=== PATIENT | female | born 1995 | race African-American/Black ===

== ENCOUNTER 2018-02-03 12:01 | Day surgery (SDC) | payer OTHER ==
[2018-02-03 12:34] VITALS: BP 119/72; TEMP 98.5
[2018-02-03 12:35] VITALS: BMI 26.6
--- NOTE | 2018-02-03 15:41 | ULT ---
OB ULTRASOUND: HISTORY: Size and dates. Followup to possible previa. Vaginal bleeding x2 days. COMPARISON: 11/26/2017 FINDINGS: Real-time imaging of the pelvis shows a single viable intrauterine in a breech presentation . The placenta is posterior in location. There is no evidence of previa. There is a definite separ ate from the cervical os on this exam. Cervical canal length is 3.4 cm. The placenta has a somewhat unusual appearance, as the placental edges appear slightly lifted with some curling of the edges of the placenta centrally; however, I see no evidence of any central band. This has some features of a circumvallate placenta. The amniotic fluid is adequate for this stage of . heart rate is 150 beats per minute. measurements are as follows: BPD: 5.8 cm (23 weeks 6 days) HEAD CIRCUMFERENCE: 22.3 cm (24 weeks 2 days) ABDOMINAL CIRCUMFERENCE; 19.6 cm (24 weeks 2 days) FEMUR LENGTH: 4.5 cm (24 weeks 5 days) Review of anatomy shows a normal appearing spine, a three-vessel cord, a four-chamber heart, an d normal kidneys. The posterior fossa appears unremarkable. No anomalies are detected. The amnioti c fluid index is calculated at 13.3. IMPRESSION: 1. Single viable intrauterine in a breech presentation. Overall measurements correspondin g to a gestational age of 24 weeks 1 day. Estimated date of delivery 05/25/2018. 2. The placenta is posterior in location. On this examination, no previa is demonstrated; however, there is an unusual enfolding of the margins of the placenta. There is no central connecting band bu t the appearance of these enfolding margins raises the possibility of a circumvallate placenta. I wo uld recommend consideration for followup with an MRI to confirm this finding. POS: [facility]
[2018-02-03 17:18] LABS: Bilirubin Negative (Negative); Blood, Urine Negative (Negative); Clarity CLEAR (Clear); Glucose, Urine (Dipstick) Negative (Negative); Leukocyte Trace (Negative); Nitrite Negative (Negative); Protein, Urine (Dipstick) Negative (Neg-Trace); Specific Gravity, Urine 1.013 (1.002-1.036); pH, Urine 7.5 (5.0-9.0)
[2018-02-03 17:20] LABS: Bacteria/HPF None Seen HPF (None Seen); Hyaline Casts/LPF 0-3 HYALINE CAST LPF (0-3 Hyaline); Pathc Cast-AUWi Flag 0.29 (0-2.49); RBC/HPF 0-3 HPF (0-3); Squamous Epithelial 0-3 HPF (0-3)
[2018-02-03 17:31] LABS: Transitional Epithelial 0-3 HPF (0-3)
--- NOTE | 2018-02-03 22:09 | PRG ---
DATE OF SERVICE: 02/03/2018 PRIMARY AIR POLLUTION COMPLIANCE INSPECTOR: Dr. Kory Sampson. CHIEF COMPLAINT: Vaginal bleeding. HISTORY OF PRESENT ILLNESS: The patient is a 23-year-old, G5, P1 female with an intrauterine pregnan cy at 24 weeks and 3 days and a history of delivery at 32 weeks, who was sent to the Labor an d Delivery from the clinic after being evaluated there for vaginal bleeding. The patient reports estela t Dr. Sampson had to use several Q-tips to remove the blood that was in the vaginal vault. At the time of our evaluation, the patient had already received a ultrasound demonstrating an appropriate sized fetus at 24 weeks gestation with a cervical length of 3.4 cm and a normal MICHAEL. Of note, ultras ound also did report some abnormal findings and this ultrasound imaging suggesting a circumvallate pl acenta and had recommended an MRI of the placenta for definitive diagnosis. I shared these results w ith Ms. Foley. At the time of our evaluation, the patient reports that her bleeding had although st opped and that she was feeling some pains in her lower pelvis and back area that she describes more a s sharp, although she does not report that they get worse with activity. The patient denies intercou rse in last couple days. She did have a history of placenta previa earlier in the ; however , this ultrasound does demonstrate a posterior placenta, about 2.8 cm from the internal os. The tyler ent denies headache, chest pain, shortness of breath, nausea, vomiting, any new rashes, significant d iarrhea, constipation. She denies any other discharge. She denies urinary urgency or frequency. PAST MEDICAL HISTORY: Negative. PAST SURGICAL HISTORY: She has had 1 prior . OB HISTORY: She had a delivery at 32 weeks. SOCIAL HISTORY: Denies drug, alcohol or tobacco use. ALLERGIES: No known drug allergies. MEDICATIONS: vitamins. REVIEW OF SYSTEMS: Per HPI. PHYSICAL EXAMINATION: VITAL SIGNS: Blood pressure 115/70, heart rate of 76, satting 99% on room air, temperature 98.5, res piratory rate 18. GENERAL: She appears to be in no acute distress. She is alert and oriented, cooperative and pleasan t to interact with. HEAD: Normocephalic, atraumatic. CHEST: Clear to auscultation bilaterally. HEART: Regular rate and rhythm. ABDOMEN: Soft and nontender. She does have a little bit of tenderness with deviation of the uterus and a little bit of suprapubic tenderness. No CVA tenderness and no vertebral tenderness. EXTREMITIES: Nontender and nonedematous. PELVIC: Vulva is without masses, lesions or erythema. She has no blood visible on her perineum. On speculum exam, she has a significant amount of greenish white discharge. There is no obvious bleedi ng though after the swabs for PLATFORM POWER TECHNICIAN-3 and GC chlamydia. The cervix appeared somewhat friable. On digit al exam, cervix is closed and thick, but soft. heart tracing performed. Fetus noted to have a baseline in the 140s with moderate long-term va riability, appropriate for 24-week gestation. Tocometer shows irritability. No regular contraction pattern. LABORATORY STUDIES: Urinalysis is negative for protein, ketones, nitrites. She has trace leukocyte esterase, 4-6 white blood cells, no squamous cells, and no bacteria. PLATFORM POWER TECHNICIAN-3 is positive for bacterial vaginosis for Gardnerella, is negative for Trichomonas and Marilee. GC and chlamydia are pending. ASSESSMENT AND PLAN: The patient is a 23-year-old female, who presented with vaginal bleeding that s eems to be self-limited and some pelvic pain. She has a normal cervical length at 3.4 cm. Normal ap pearing fetus for gestational age, size hamilton. There are some concerns on the ultrasound that the isaías villareal may have a circumvallate placenta and MRI as recommended. I will be sharing results with the anshul riley with the diagnosis of bacterial vaginosis and will be giving her a prescription for metronidazo le 500 mg to be taken twice a day for 7 days. She also has an order for an MRI to be done outpatient tomorrow morning at 9:30. The patient has been here for a total of 6 hours and subjectively feeling better. patient go home as her cervix is closed and her bleeding has stopped. She has an MRI for the morning and will be given a prescription for metronidazole and has instructions to follow up with her primary OB in the next few days.
[2018-02-07 20:51] LABS: Chlamydia by PCR Not Detected (NotDetected); GC by PCR Not Detected (NotDetected)
--- NOTE | 2018-02-07 22:07 | PDOC.EVN ---
Event Note - Event Note Event Note: Post-discharge Note: on 02/07/18 at 2200: I was requested to follow up on GC/Chl PCR from 02/03...GC and Chl were both negative.
== END 2018-02-03 19:15 | disposition home or self-care (01) ==
LOC: L&D/OP 12:01
PROVIDERS: ATTEND Internal Medicine
DX: O46.92 Antepartum hemorrhage, unspecified, second trimester (principal); O99.89 Other specified diseases and conditions complicating pregnancy, childbirth and the puerperium; R10.2 Pelvic and perineal pain; O23.592 Infection of other part of genital tract in pregnancy, second trimester; B96.89 Other specified bacterial agents as the cause of diseases classified elsewhere; Z79.899 Other long term (current) drug therapy; Z3A.24 24 weeks gestation of pregnancy
CPT/HCPCS: 51701; 76805; 81001; 87480; 87491; 87510; 87591; 87660; 99285; A4353

== ENCOUNTER 2018-02-24 16:14 | Outpatient (CLI) | payer OTHER ==
--- NOTE | 2018-02-25 09:19 | MRI ---
MRI OF THE PELVIS WITHOUT IV CONTRAST: COMPARISON: Obstetrical ultrasound dated 02/02/2018. TECHNIQUE: Multiplanar, multisequence MR images were obtained of the pelvis without IV contrast. FINDINGS: The placenta is posterior in location without evidence of previa. There is uplifting of the superior aspect of the membranes off the placental margin, best seen on images 27 through 16 of series 12. The placental ledge is best seen along the superior aspect of the placenta on image 23 of series 2 and on image 36 of series 3. The circumvallate placenta involves approximately 15-20% of the supe rior and left lateral margin of the placenta. There are no overt changes to suggest abruption. There is a 3-vessel cord. The fetus is in a vertex presentation. Appropriate situs is demonstrated. The visualized kidneys, bladder, stomach, heart, lungs, and spine appear within normal limits . Qualitatively, the MICHAEL appears within normal limits. The cervical length is 3.2 cm. There are no overt changes of funneling. No free fluid is evident. There is a 2 cm cyst involving the superior pole of the maternal left kidn ey. The visualized aspects of the maternal right kidney are normal-appearing without evidence of hyd ronephrosis. The maternal bone marrow signal intensity appears within normal limits. IMPRESSION: 1. Findings of circumvallate placenta along the superior and maternal left lateral margin of the paulette cental attachment occupying approximately 15 to 20% of the placenta margin by estimate. No additiona l abnormality demonstrated. 2. Left maternal renal cyst. POS: [facility]
== END 2018-02-24 16:15 | disposition home or self-care (01) ==
LOC: MRI 16:14
PROVIDERS: ATTEND Obstetrics & Gynecology
DX: O09.212 Supervision of pregnancy with history of pre-term labor, second trimester (principal); O34.82 Maternal care for other abnormalities of pelvic organs, second trimester; N28.1 Cyst of kidney, acquired
CPT/HCPCS: 72195

== ENCOUNTER 2018-03-14 20:48 | Day surgery (SDC) | payer OTHER ==
[2018-03-14 21:37] LABS: #Eosinphils 0.2 thou/uL (0.0-0.7); #Lymphocytes 1.6 thou/uL (1.20-3.40); #Monocytes 0.8 thou/uL (0.11-0.59); %Basophils 0.3 % (0.0-1.0); %Eosinophils 2.6 % (0.0-10.0); %Lymphocytes 18.4 % (21.0-51.0); %Monocytes 9.4 % (0.0-10.0); %Neutrophils 69.3 % (42.0-75.0); Hemoglobin 9.2 g/dL (12.0-16.0); Mean Corpuscular HGB CONC 32.6 g/dL (32.0-36.0); Mean Corpuscular Hemoglobin 25.4 pg (27.0-31.0); Mean Corpuscular Volume 77.9 fL (78.0-98.0); Mean Platelet Volume 7.3 fL (7.4-10.4); Platelet Count 131 thou/uL (130-400); RBC Distribution Width 13.6 % (11.5-14.5); Red Blood Cell (RBC) Count 3.64 mill/uL (4.20-5.40); White Blood Cell (WBC) Count 8.7 thou/uL (4.8-10.8)
[2018-03-14 21:59] LABS: ALT (SGPT) 7 U/L (8-55); AST (SGOT) 17 U/L (5-34); Albumin 3.4 g/dL (3.5-5.0); Alkaline Phosphatase 114 U/L (40-150); Anion Gap 11 mmol/L (10-20); BUN (Urea Nitrogen) 5 mg/dL (7.0-18.7); Bilirubin, Total 0.5 mg/dL (0.2-1.2); Calc. Creatinine Clearance 0 mL/min (70-130); Calcium 9.1 mg/dL (7.8-10.44); Carbon Dioxide 24 mmol/L (22-29); Chloride 105 mmol/L (98-107); Estimated GFR-MDRD Greater than 90; Globulin 3.6 g/dL (2.4-3.5); Glucose 86 mg/dL (70-105); Magnesium 1.5 mg/dL (1.6-2.6); Potassium 3.6 mmol/L (3.5-5.1); Sodium 136 mmol/L (136-145)
[2018-03-14 22:02] LABS: Troponin I Less than 0.010 ng/mL (< 0.028)
[2018-03-14 22:20] VITALS: BP 115/69; TEMP 98.1; BMI 27.8
--- NOTE | 2018-03-14 22:46 | PRG ---
DATE OF SERVICE: 03/14/2018 TIME OF SERVICE: 2215 hours. OB ED NOTE PRESENTING COMPLAINT: A 23-year-old, 30 weeks' gestation with a syncopal episode at home and fall. HISTORY OF PRESENT ILLNESS: Ms. Foley is a 23-year-old 5, para 1, AB 3 at 30 weeks by state [facility]. Antepartum record is not available on the unit. The patient reports that she was at home in the kitchen and she felt hot and dizzy, and the next thing she knew she woke up and she was in the am bulance. By reports of her is that he found her lying on the floor on her side in the kitche n. No known abdominal trauma occurred. The patient denies vaginal bleeding, rupture of membranes, c urrent abdominal pain, or contractions. OBSTETRIC AND GYNECOLOGIC HISTORY: The patient's antepartum record is not available on the unit. It appears that the patient has had some antepartum care during this , but only recently [employer]. She reports that she just recently got on 17-hydroxyprogesterone for history of previo us births in the past few weeks. The patient has had 3 spontaneous miscarriages. She report s she had a 32-week spontaneous rupture of membranes and proceeded on to active labor for which she h ad section for unknown reason. The patient is unaware of her blood type and I cannot find i t in any of her previous visits at [facility] in the computer. Review of recent MRI at [facility] revealed that the patient had a marginally circumvallate placenta and 1 cyst noted on her kidney. The patient's basic metabolic panel tonight reveals a normal creatin ine of 0.66. The patient is mildly anemic with a hematocrit of 28.4. PAST MEDICAL HISTORY: Significant for polycystic kidney disease. PAST SURGICAL HISTORY: . ALLERGIES: Denies. MEDICATIONS: vitamins and 17-hydroxyprogesterone. SOCIAL HISTORY: Denies tobacco, alcohol, IV drug use. FAMILY HISTORY: Noncontributory. PHYSICAL EXAMINATION: GENERAL: Black female resting comfortably, status post C-collar clearance in the emergency room. VITAL SIGNS: Temperature 98.7, respirations 18, blood pressure 108/72, pulse 85. HEENT: Within normal limits. LUNGS: Clear to auscultation bilaterally. HEART: Regular rhythm. ABDOMEN: Soft and nontender without palpable contractions. Fundal height 30 cm. FHTs 130s to 150s, positive accelerations, no decelerations noted on external monitoring. No CVA tenderness is noted. EXTREMITIES: Without clubbing, cyanosis, or edema. PELVIC: Vaginal exam is deferred. MONITORING: monitoring has been placed at this time. Monitoring for greater than 20 min utes in the ER revealed no contractions and no decelerations. IMPRESSION: The patient is status post syncopal episode, likely secondary to physiologic hypotension in early third trimester. No evidence of abdominal trauma. PLAN: Continuous monitoring for 3 to 4 more hours. If no significant contractions or evidence of distress, we will discharge her home for scheduled followup with Dr. Sampson.
[2018-03-14] MEDS ORDERED: Acetaminophen 325 MG TAB PO PRN (22:52)
== END 2018-03-15 01:00 | disposition home or self-care (01) ==
LOC: ERS 20:48 → L&D/OP 21:58
PROVIDERS: ATTEND Family Medicine
DX: O99.89 Other specified diseases and conditions complicating pregnancy, childbirth and the puerperium (principal); R55 Syncope and collapse; Q61.3 Polycystic kidney, unspecified; O99.013 Anemia complicating pregnancy, third trimester; D64.9 Anemia, unspecified; Z3A.30 30 weeks gestation of pregnancy; Z79.899 Other long term (current) drug therapy; W19.XXXA Unspecified fall, initial encounter
CPT/HCPCS: 36415; 80053; 83735; 84484; 85025; 99283

== ENCOUNTER 2018-03-21 11:40 | Day surgery (SDC) | payer OTHER ==
[2018-03-21 12:05] VITALS: BP 116/67; TEMP 97.8; BMI 27.3
--- NOTE | 2018-03-21 12:32 | PDOC.FPROB ---
FMR OB H&P: HPI - History of Present Illness Chief Complaint: cramping History of Present Illness: 23 yo F comes in with chief complaint of cramping that started last night about 2044. She states at home it would come and go every 2-3 minutes, she went to sleep and it spaced out. She describes the pain as dull. She has some pain in the back related to the cramping that comes and goes. She states she noted some blood in the urine this AM and had some dysuria. She denies vaginal bleeding, states she has a small amount of white vaginal discharge. Denies vaginal itching or burning. She has had Nausea for the last 3 days, she had four episodes of diarrhea yesterday but not vomiting. No fevers, chills, or sweats. No blood in the stool. Feels baby moving, possible contractions as above, dysuira as above, no BALDEV, no vaginal bleeding. Denies Headache, SOB, visual changes, or swelling. Primary Care Physician: Adrián FMR OB H&P: Current - Care : 5 Para: 1030 Gestational age: 31 - Additional Ultrasound Additional: US on 03/14 showed posterior placenta, "placental folding", cervical canal length 3.4 cm, no evidence of previa Follow-up MRI showed circumvallate placenta FMR OB H&P: History - Past Medical History PMH: Polycystic kidney disease - OB History OB History: 3 sab 1 infant delivered at 32 weeks after SROM. She does not know indication for c/s. - Surgical History Sx History: c/s x1 - Social History Social History: denies smoking, alcohol, or drugs - Family History Family History: father with congenital heard defect, "hole in heart", did not require intervention cousins with down's, autism, CP FMR OB H&P: Medications - Current Home Medications: Medication Instructions Recorded Confirmed Type Ferrous Sulfate 324 mg PO DAILY 02/03/18 03/21/18 History Vit Calc,Iron,Folic 1 each PO DAILY 02/03/18 03/21/18 History [ Vitamins] Allergies/Adverse Reactions: Allergies Allergy/AdvReac Type Severity Reaction Status Date / Time No Known Allergies Allergy Verified 03/21/18 12:05 FMR OB H&P: ROS - Review of Systems General: denies: fever/chills, fatigue ENT: denies: nasal congestion, sore throat Cardiovascular: denies: chest pain, palpitation Respiratory: denies: cough, shortness of breath Gastrointestinal: reports: nausea, diarrhea. denies: vomiting Genitourinary (Female): reports: dysuria, hematuria Musculoskeletal: denies: pain, stiffness Neurologic: denies: numbness, syncope Integumentary: denies: itching, rash Hematologic/Lymphatic: denies: prolonged or excessive bleeding FMR OB H&P: Vital Signs - Maternal Vital signs: Vital Signs - First Documented Temp Resp BP 97.8 F 18 116/67 03/21/18 11:59 03/21/18 11:59 03/21/18 11:59 - Heart Tones Baseline: 140 Variability: moderate Acceleration: present Deceleration: absent Category: category 1 [place] contractions every: irregular FMR OB H&P: Physical Exam - Physical Exam General: NAD, awake, alert and oriented HEENT: normocephalic and atraumatic, PERRLA Neck: supple Heart: RRR, normal S1/S2, no murmurs/rubs/gallops, pulses present General: CTAB, no respiratory distress, good air movement Abdomen: soft, gravid, non-tender, bowel sound present Deviation from normal: no CVA tenderness Musculoskeletal: pulses present Neurological: cranial nerves II through XII intact, no focal deficit Skin: no rash, capillary refill <2 seconds FMR OB H&P: A/P - Problem List (1) Cramping affecting , antepartum Status: Acute Code(s): O26.899 - OTH RELATED CONDITIONS, UNSPECIFIED TRIMESTER; R10.9 - UNSPECIFIED ABDOMINAL PAIN Discussion: Date/Time: 03/21/18 1232 This H&P was discussed with Dr. Chanel # Pre-term , cramping - hx of loss x3, on progesterone - denies vaginal bleeding or drake of fluids - Posterior placenta, no previa, circumvallate placenta per MRI - irregular contractions, will monitor - will do SVE if she has a regular cxn pattern # Dysuria, UTI vs Pyelo - hx of PCKD - no CVA tenderness or fever - check UA, CBC, CMP Attending Addendum - Attending Addendum Date/Time: 03/21/18 1430 I personally evaluated the patient and discussed the management with Dr. Burris. I agree with the History, Examination, Assessment and Plan documented above.
[2018-03-21] MEDS ORDERED: Acetaminophen 325 MG TAB PO SCH (12:45)
[2018-03-21] MEDS ORDERED: Lactated Ringer's 1,000 ML IV SCH (12:45)
[2018-03-21 13:20] LABS: #Eosinphils 0.2 thou/uL (0.0-0.7); #Monocytes 0.7 thou/uL (0.11-0.59); #Neutrophils 5.4 thou/uL (1.40-6.50); %Basophils 0.1 % (0.0-1.0); %Eosinophils 2.5 % (0.0-10.0); %Lymphocytes 13.6 % (21.0-51.0); %Neutrophils 74.8 % (42.0-75.0); Hemoglobin 8.8 g/dL (12.0-16.0); Mean Platelet Volume 7.5 fL (7.4-10.4); Platelet Count 118 thou/uL (130-400); Red Blood Cell (RBC) Count 3.52 mill/uL (4.20-5.40); White Blood Cell (WBC) Count 7.2 thou/uL (4.8-10.8)
[2018-03-21 13:21] LABS: Bilirubin Negative (Negative); Blood, Urine Trace (Negative); Clarity CLEAR (Clear); Glucose, Urine (Dipstick) Negative (Negative); Leukocyte Trace (Negative); Nitrite Negative (Negative); Protein, Urine (Dipstick) Negative (Neg-Trace); Specific Gravity, Urine 1.005 (1.002-1.036)
[2018-03-21 13:24] LABS: Bacteria/HPF None Seen HPF (None Seen); Hyaline Casts/LPF 0-3 HYALINE CAST LPF (0-3 Hyaline); Pathc Cast-AUWi Flag 0.29 (0-2.49); WBC/HPF 0-3 HPF (0-3)
[2018-03-21 13:30] LABS: ALT (SGPT) Less than 7 U/L (8-55); AST (SGOT) 16 U/L (5-34); Albumin 3.3 g/dL (3.5-5.0); Alkaline Phosphatase 116 U/L (40-150); Anion Gap 12 mmol/L (10-20); BUN (Urea Nitrogen) Less than 4 mg/dL (7.0-18.7); Bilirubin, Total 0.6 mg/dL (0.2-1.2); Calc. Creatinine Clearance 136 mL/min (70-130); Calcium 8.7 mg/dL (7.8-10.44); Carbon Dioxide 23 mmol/L (22-29); Chloride 104 mmol/L (98-107); Estimated GFR-MDRD Greater than 90; Globulin 3.5 g/dL (2.4-3.5); Glucose 78 mg/dL (70-105); Potassium 3.8 mmol/L (3.5-5.1); Protein, Total 6.8 g/dL (6.0-8.3); Sodium 135 mmol/L (136-145)
--- NOTE | 2018-03-21 13:35 | PDOC.EVN ---
Event Note - Event Note Event Note: CBC/CMP review Hgb 8.8, Plt 118 AST, ALT WNL awaiting U/A results cxns are quite irregular after 1L LR FHT shows moderate variability, accels <Shiv Burris - Last Filed: 03/21/18 13:34> Attending Addendum - Attending Addendum Date/Time: 03/21/18 1431 I discussed the management with Dr. Burris. I agree with the Assessment and Plan documented above. <Bassem Chanel - Last Filed: 03/21/18 14:31>
[2018-03-21 13:39] LABS: Anisocytosis SLIGHT = 6-15 cells (100X) (0-5/hpf); MDiff Complete? YES; PLT Morphology Comment Appears Decreased; Polychromasia SLIGHT = 2-3 cells (100X) (0-2/hpf)
[2018-03-21 13:41] LABS: Renal Epithelial 0-3 HPF (0-3); Transitional Epithelial 0-3 HPF (0-3)
--- NOTE | 2018-03-21 14:00 | PDOC.EVN ---
Event Note - Event Note Event Note: U/A- shows moderate ketones, 7-10 rbs, trace leuk est no WBC, no bact Patient states pain is almost totally resolved after 650mg of tylenol No cxns last 20 minutes on strip, irregular before that Plan -d/c home - encouraged increased fluid intake, 4-6 bottles of water per day - RTC precautions discussed including fever, flank pain, cxns <5 min apart, ROM , or vaginal bleeding - f/u appt with Dr. Sampson in 3 days - patient is in agreement with plans, all questions answered <Shiv Burris - Last Filed: 03/21/18 13:57> Attending Addendum - Attending Addendum Date/Time: 03/21/18 1432 I personally evaluated the patient and discussed the management with Dr. Burris. I agree with the Assessment and Plan documented above. <Bassem Chanel - Last Filed: 03/21/18 14:32>
== END 2018-03-21 14:10 | disposition home or self-care (01) ==
LOC: L&D/OP 11:40
PROVIDERS: ATTEND Family Medicine
DX: O47.03 False labor before 37 completed weeks of gestation, third trimester (principal); R30.0 Dysuria; Z3A.31 31 weeks gestation of pregnancy
CPT/HCPCS: 36415; 51701; 80053; 81001; 85025; 96360; 99282; A4353

== ENCOUNTER 2018-04-09 20:04 | Inpatient (IN) | payer OTHER ==
[2018-04-09 20:53] VITALS: BMI 27.8
[2018-04-09] MEDS ORDERED: Promethazine HCl 25 MG/ML VIAL IM/IV PRN (20:53)
[2018-04-09] MEDS ORDERED: NIFEdipine 10 MG CAP PO SCH ×3 (21:00→22:45)
[2018-04-09] MEDS: Lactated Ringer's 1,000 ML IV SCH (21:20)
[2018-04-09] MEDS: Butorphanol Tartrate 1 MG/ML VIAL SLOW IVP PRN (21:24)
[2018-04-09] MEDS: Betamet Acet/Betamet Na Ph 30 MG/5 ML VIAL IM SCH (21:24)
[2018-04-09 22:05] LABS: ALT (SGPT) 11 U/L (8-55); AST (SGOT) 27 U/L (5-34); Albumin 3.3 g/dL (3.5-5.0); Alkaline Phosphatase 146 U/L (40-150); Anion Gap 14 mmol/L (10-20); BUN (Urea Nitrogen) 5 mg/dL (7.0-18.7); Bilirubin, Total 0.7 mg/dL (0.2-1.2); Calc. Creatinine Clearance 160 mL/min (70-130); Calcium 8.4 mg/dL (7.8-10.44); Carbon Dioxide 17 mmol/L (22-29); Chloride 107 mmol/L (98-107); Estimated GFR-MDRD Greater than 90; Globulin 3.7 g/dL (2.4-3.5); Glucose 80 mg/dL (70-105); Potassium 3.2 mmol/L (3.5-5.1); Sodium 135 mmol/L (136-145)
[2018-04-09 22:07] LABS: #Eosinphils 0.3 thou/uL (0.0-0.7); #Lymphocytes 0.7 thou/uL (1.20-3.40); #Monocytes 0.6 thou/uL (0.11-0.59); #Neutrophils 8.1 thou/uL (1.40-6.50); %Basophils 0.2 % (0.0-1.0); %Eosinophils 2.7 % (0.0-10.0); %Monocytes 6.6 % (0.0-10.0); %Neutrophils 83.6 % (42.0-75.0); MDiff Complete? YES; Mean Corpuscular Hemoglobin 23.7 pg (27.0-31.0); Mean Corpuscular Volume 74.1 fL (78.0-98.0); Mean Platelet Volume 8.8 fL (7.4-10.4); Platelet Count 92 thou/uL (130-400); RBC Distribution Width 15.2 % (11.5-14.5); Red Blood Cell (RBC) Count 3.82 mill/uL (4.20-5.40); White Blood Cell (WBC) Count 9.7 thou/uL (4.8-10.8)
[2018-04-09 22:08] LABS: Anisocytosis SLIGHT = 6-15 cells (100X) (0-5/hpf); PLT Morphology Comment Appears Decreased
--- NOTE | 2018-04-09 22:21 | PDOC.EVN ---
Event Note - Event Note Event Note: L&D meds: s/p 1 dose oral procardia 10mg...contractions still about every 4-6 minutes. I have ordered another 10mg po (first dose was at 2123) now. NICU aware of patient's status.
--- NOTE | 2018-04-09 22:22 | PDOC.EVN ---
Event Note - Event Note Event Note: Labs noted: Cr normal Hct 28
[2018-04-09 22:23] LABS: Syphilis Antibody Nonreactive (Nonreactive); Syphilis Antibody Index 0.05 S/CO (<1.00 Non-Reactive)
--- NOTE | 2018-04-09 22:37 | PDOC.EVN ---
Event Note - Event Note Event Note: Procardia dose increased to 20mg (ordered an additional 10mg to complete this dose...other doses will be 20mg po)
[2018-04-09] MEDS: NIFEdipine 10 MG CAP PO SCH (22:55)
--- NOTE | 2018-04-09 23:10 | PDOC.EVN ---
Event Note - Event Note Event Note: sono ef2 about 2 kilos, vertex, posterior placenta; largest fluid pocket around 3cm
[2018-04-09 23:12] LABS: HBSAg Index 0.18 S/CO (0-0.99); HIV (1/2) Antibody/Antigen Non-Reactive (NonReactive); HIV 1/2 INDEX 0.18 S/CO (<1.00); Hep B Surf Ag Non-Reactive S/CO (NonReactive)
--- NOTE | 2018-04-09 23:40 | ULT ---
OB ULTRASOUND: HISTORY: Thirty-three week patient. Evaluate weight, presentation, and MICHAEL. COMPARISON: 02/03/2018 TECHNIQUE: Sagittal and transverse imaging of a gravid uterus is performed. FINDINGS: Single intrauterine gestation. Vertex presentation. Cervical length is between 3.3 and 3.9 cm. heart tones with a rate of 150 beats per minute. Amniotic fluid index is 10.7 cm. BIOMETRY: BPD: 7.64 cm (30 weeks 5 days) HEAD CIRCUMFERENCE: 28.87 cm (31 weeks 5 days) ABDOMINAL CIRCUMFERENCE: 29.87 cm (33 weeks 6 days) FEMUR LENGTH: 6.20 cm (32 weeks 1 day) Average age by sonography is 32 weeks 1 day. Estimated date of delivery is 06/03/2018. Estimated weight is 2061 g, plus or minus 305 g. A posterior placenta is noted. Evaluation is limited for the presence or absence of previa. A three-vessel cord is noted. Unremarkable kidneys. Unremarkable urinary bladder. The visualized s pine is also unremarkable. IMPRESSION: 1. Single intrauterine gestation with a vertex presentation. Average age by sonography is 32 weeks 1 day. Estimated date of delivery is 06/03/2018. 2. Posterior placenta: Limited evaluation for the presence of absence of previa. 3. Cervical length as above. 4. Amniotic fluid index of 10.7 cm. POS: [facility]
--- NOTE | 2018-04-09 23:43 | HP ---
TIME OF EVALUATION: 20:30 until 20:45. LOCATION: Triage Labor and Delivery, patient in room LDR 3. This is a patient of Dr. Sampson. REASON FOR EVALUATION: Suspected contractions at 33 weeks and 5 days. HISTORY OF PRESENT ILLNESS: In brief, this is a 23-year-old -Wallisian 5, para 1 with 3 prior miscarriages with the last delivery being at 32 weeks when she delivered via section at the [facility] with Dr. Culp for " distress." She is not sure of the type of uterine incision and she was never told that she could or could not have a vaginal delivery. She informs me that Dr. Sampson told her that she was going to have a repeat for this delivery. She is here for possible contractions. No vaginal bleeding, no leakage of fluid, good movement. No recent trauma. No headaches or right upper quadrant pain or visual changes. REVIEW OF SYSTEMS: Complete review of systems was done and is otherwise negative unless specified in the HPI. PAST SURGICAL HISTORY: Significant for polycystic kidney disease and she has her own community health agent at [facility]. ALLERGIES: None. SOCIAL HISTORY: None. PAST SURGICAL HISTORY: in 2012. PHYSICAL EXAMINATION: VITAL SIGNS: Blood pressure is 122/72 and she is afebrile, pulse is 90-100. GENERAL: Clinically, she is in no acute distress, but has some occasional contraction discomfort. ABDOMEN: Soft and nontender with a Pfannenstiel skin incision that is well healed. Cervical examination by me reveals a cervix that is 1/30/-2/cephalic/ intact. No evidence of vaginal bleeding noted. IMAGING DATA: On monitors, heart tones are in the 150s and reactive. Contractions are about every 3-5 minutes. ASSESSMENT: This is a 23-year-old -Wallisian 5, para 1 with 3 prior miscarriages, who is currently at 33 weeks and 5 days by EDC of 05/23/2017 , history of with a of unknown type, now with threatened labor. PLAN: 1. IV hydration. 2. Stadol and Phenergan. 3. Patient is over 32 weeks, so we will not give magnesium sulfate for neuro protection. 4. Celestone for lung maturity. 5. Procardia for tocolysis to aid steroid benefit. 6. Sono for estimated weight. 7. If patient labors with an unknown history, which was performed , we will likely perform a repeat section. 8. I discussed these findings and plan with the patient and her partner. Plan was also written on the white board in the patient's room. We will observe overnight and give her steroids for lung maturity. STEFANY
--- NOTE | 2018-04-10 07:38 | PDOC.LDPN ---
Labor & Delivery Progress Note - Objective Vital signs reviewed and normal: yes General: NAD Uterine fundus: non tender FHT: category 1 - Assessment (1) Threatened labor, antepartum Code(s): O47.00 - FALSE LABOR BEFORE 37 COMPLETED WEEKS OF GEST, UNSP TRI Current Visit: Yes Status: Acute Plan: continue plan of care (Second steroid inhection will be tonight at 2100 or so; on procardia 30mg TID; seems to be arrested PTL at 1cm; prior CS; mild thrombocytopenia)
--- NOTE | 2018-04-10 08:53 | PDOC.EVN ---
Event Note - Event Note Event Note: Received report from Dr. Villavicencio. 23 yo BF with h/o C/S at 32 weeks now with arrested PTL on Procardia. doing well, UCs spacing out, FHTs stable. 2nd dose of steroids at 2100. Plan: Cont. current management.
[2018-04-10] MEDS: NIFEdipine 10 MG CAP PO SCH ×2 (10:00→16:25)
[2018-04-10] MEDS: Lactated Ringer's 1,000 ML IV SCH ×2 (15:08→23:43)
[2018-04-10] MEDS ORDERED: Acetaminophen 325 MG TAB PO PRN (20:21)
[2018-04-10] MEDS: Betamet Acet/Betamet Na Ph 30 MG/5 ML VIAL IM SCH (21:40)
[2018-04-11] MEDS: NIFEdipine 10 MG CAP PO SCH ×2 (00:08→13:44)
[2018-04-11] MEDS: Butorphanol Tartrate 1 MG/ML VIAL SLOW IVP PRN ×2 (02:00→07:40)
--- NOTE | 2018-04-11 02:10 | PDOC.EVN ---
Event Note - Event Note Event Note: C/o lower abdominal discomfort. Abdomen soft. Stadol 1 mg given. Fhts stable. No regular UCs seen. 2nd dose of steroids given at 9 PM. Plan; Cont. Procardia x 24 hrs post last dose of steroids.
[2018-04-11 10:38] VITALS: BP 112/56; TEMP 98.3
--- NOTE | 2018-04-11 14:23 | PDOC.EVN ---
Event Note - Event Note Event Note: DISCHARGE NOTE: ADMIT: 04/09/18 Discharge: 04/11/18 DX: Arrested labor Prior section Third trimester Procedures: Tocolytics Steroid administration Patient s/p 2 day observation for threatened labor. I evaluated the patient first on 04/09/18 when she presented in the evening as a patient of Dr Sampson, prior CS at 33weeks or so at another hospital, presented with possible contractions. Due to labor HX, we elected to watch her for labor. Exam was about 1cm on arrival. Patient underwent steroid administration for 2 injections of Celestone Q24 hrs. She was not given Mag Sulfate for neuroprotection as she was over 32 weeks. procardia given for tocolytics. OB ultrasound revealed a cephalic fetus, size appropriate. Incidental finding of low platelets (>90K) found on admit labs. Patient seen 04/11 at 1420 by me and no evidence of progressive labor, nor LOF. Patient requested discharge to home due to child nutrition assistant issues. Given DC to home clearance 04/11 at approx 1430. Will follow up with Dr Sampson
--- NOTE | 2018-04-11 14:41 | DIS ---
DATE OF ADMISSION: 04/09/2018 DATE OF DISCHARGE: 04/11/2018 In brief, this patient has a discharge note recorded in the EMR/[facility] under documents. This dicta tion is ancillary. DIAGNOSES: 1. Arrested labor at 33 weeks. 2. Prior section. 3. Third trimester . PROCEDURES: 1. Tocolytics. 2. Steroid administration. HOSPITAL COURSE: In brief, this patient presented with me tong setter on 04/09/2018 in the evening and h as a prior at 33 weeks with possible contractions. I evaluated her and found her history t o include a prior at another institution. type is unknown. She sees Dr. Adrián dupont or care. Her cervical exam was 1 cm, no vaginal bleeding or rupture of membranes was eviden t on history or on exam. I kept the patient for steroid administration, Procardia tocolysis and magn esium sulfate was not used as her EGA was over 32 weeks. Ultrasound confirmed a cephalic presentatio n fetus, that was sized appropriate. Patient requested to go home on 04/11/2018 after her two steroi d administrations were completed, due to manager child issues. She will follow up with Dr. Sampson. Once again, this patient has a full discharge note under event note in the [facility] record.
== END 2018-04-11 15:29 | disposition home health service (06) | DRG 832 ==
LOC: L&D/OP 20:04 → OBSVTOIN 20:45 → L&D 20:45
PROVIDERS: ADMIT Obstetrics & Gynecology; ATTEND Obstetrics & Gynecology
PROC: 3E0233Z Introduction of Anti-inflammatory into Muscle, Percutaneous Approach (ICD-10-PCS; principal; 2018-04-09)
DX: O47.03 False labor before 37 completed weeks of gestation, third trimester (principal); Q61.3 Polycystic kidney, unspecified; O99.113 Other diseases of the blood and blood-forming organs and certain disorders involving the immune mechanism complicating pregnancy, third trimester; O62.1 Secondary uterine inertia; Z3A.37 37 weeks gestation of pregnancy; O34.219 Maternal care for unspecified type scar from previous cesarean delivery; N85.8 Other specified noninflammatory disorders of uterus
CPT/HCPCS: 36415; 76805; 80053; 85025; 86780; 87340; 87389; 99285; J0595; J0702; J2550

== ENCOUNTER 2018-04-12 23:18 | Day surgery (SDC) | payer OTHER ==
[2018-04-12 23:42] VITALS: BP 133/74; TEMP 98.4; BMI 28.7
--- NOTE | 2018-04-13 00:46 | PRG ---
DATE OF SERVICE: 04/13/2018 TIME OF SERVICE: 0020 hours PRESENTING COMPLAINTS: Abdominal pain and pressure. HISTORY OF PRESENT ILLNESS: Ms. Folye is a 23-year-old 5, para 1, AB 3, well known to this unit for multiple presentations during this . She presents to the [facility] a nd she was transferred to labor and delivery complaining of pressure, mild right upper quadrant pain from baby kicking her, and occasional contractions. She denies rupture of membranes. She denies ble eding. She reports active fetus. Of note, the patient was in the hospital approximately 4 days ago and received corticosteroids for possible early labor. OB AND [employer] HELPER HISTORY: As noted in the HPI, she has had a previous by Dr. Mason Culp at the [facility]. She is planning on having a repeat . Antepartum record is not available on the unit. PAST SURGICAL HISTORY: C-sections. MEDICAL HISTORY: Polycystic kidney disease for which the patient sees a petrology teacher for. MEDICATIONS: vitamins. ALLERGIES: None. SOCIAL HISTORY: Denies tobacco, alcohol, or IV drug abuse. FAMILY HISTORY: Noncontributory. REVIEW OF SYSTEMS: Noncontributory. PHYSICAL EXAMINATION: GENERAL: Black female in no acute distress. VITAL SIGNS: Blood pressure 130/72, pulse 85, respirations 18, temperature 98.6. HEENT: Within normal limits. LUNGS: Clear to auscultation bilaterally. HEART: Regular rate and rhythm. ABDOMEN: Soft and nontender, without palpable contractions. FHTs 140s. PELVIC: Vulva without lesions. Vagina, discharge. Cervix fingertip long, and high, presenting part not palpable. EXTREMITIES: Without clubbing, cyanosis or edema. monitoring reveals no evidence of contractions, baseline of 130s, positive accelerations, no de celerations. IMPRESSION: Discomforts of at 34 weeks. No evidence of labor. PLAN: Discharge home, keep scheduled followup with Dr. Sampson. The patient has her last weekly proge sterone injections this week and will keep that appointment as well too.
== END 2018-04-13 00:30 | disposition home or self-care (01) ==
LOC: L&D/OP 23:18
PROVIDERS: ATTEND Obstetrics & Gynecology
DX: O26.893 Other specified pregnancy related conditions, third trimester (principal); R10.11 Right upper quadrant pain; Z3A.36 36 weeks gestation of pregnancy
CPT/HCPCS: 96360; 99283

== ENCOUNTER 2018-04-26 09:34 | Day surgery (SDC) | payer OTHER ==
[2018-04-26 10:13] VITALS: BMI 27.8
[2018-04-26] MEDS ORDERED: Morphine 10 MG/ML VIAL ONE (12:44)
[2018-04-26] MEDS ORDERED: Morphine 10 MG/ML VIAL IM SCH (12:45)
[2018-04-26] MEDS ORDERED: Ondansetron ODT 8 MG TAB SL SCH (12:45)
--- NOTE | 2018-04-26 23:53 | PRG ---
DATE OF SERVICE: 04/26/2018 OB ER ENCOUNTER PRIMARY DIRECTOR OF TAX SERVICES: Dr. Kory Sampson. CHIEF COMPLAINT: Abdominal pains. HISTORY OF PRESENT ILLNESS: The patient is a 23-year-old G5, P1 female with an intrauterine at 36 weeks and a day, who presents to Labor and Delivery ER with concerns of abdominal cramping that she says feels like menstrual cramps and came to be evaluated for labor. The patient also reports that she has been having a lot more leaking this last few days that she reports is more liquidy. She denies any change in her odor. She denies fever. She denies vaginal bleeding. She does report a history of contractions throughout her these last few months and that at 32 weeks, received steroids. The patient also has a history of a 32-week delivery and has been on IM progesterone for supplementation. PAST MEDICAL HISTORY: 1. Probably kidney disease. 2. Anemia. PAST SURGICAL HISTORY: Previous with a low-transverse section per the op report for nonreassuring heart tones and premature rupture of membranes at 32 weeks. SOCIAL HISTORY: Denies drug, alcohol, or tobacco use. She also reports a history of chlamydia in the past. LABORATORY DATA: Blood type is O positive. Antibody screen is negative. RPR is nonreactive in the first and third trimester. HIV nonreactive in the first and third trimester. Hepatitis B surface antigen is negative. She is rubella immune. GC and chlamydia were negative at the beginning of this . The patient does have a history BV previously in this . REVIEW OF SYSTEMS: The patient denies fever, fall, headache, chest pain, shortness of breath, nausea, vomiting, diarrhea, constipation, new rash, hip problems, knee problems, muscle weakness, or urinary urgency. PHYSICAL EXAMINATION: VITAL SIGNS: Blood pressure 128/81, heart rate of 86, respiratory rate of 20, saturating 99% on room air, temperature 97.6. GENERAL: She appears to be in no acute distress. She is alert and oriented, cooperative, and pleasant to interact with. HEAD: Normocephalic and atraumatic. LUNGS: Clear to auscultation bilaterally. HEART: Regular rate and rhythm. ABDOMEN: Soft and gravid. She does have some minimal tenderness with deviation of the uterus, but is not consistent with the pains that she has come in complaining of. EXTREMITIES: Nontender and nonedematous. PELVIC: Vulva is without masses, lesions, or erythema. Speculum exam shows copious amount of off colored discharge, sufficient enough that I was unable to visualize the cervix without using several Peguero swabs to remove the discharge. Cervix appears to be closed and non-friable. On Valsalva, the patient does not have any evidence of leakage of fluid. Cervical exam per nursing staff, cervix is 1.5, 50, and -4 station, unchanged after 3 hours. heart tracing performed for abdominal pain and . Baseline is noted to be in the 130s with moderate long-term variability, positive 15 x 15 accelerations, no decelerations. I have noted the very end of the strip just prior to removing the monitor. The patient sat up and the heart tracing dropped from heart tones to maternal heart tones into the 80s. VPIII was collected and found to be positive for bacterial vaginosis. No evidence of Trichomonas or yeast. ASSESSMENT AND PLAN: The patient is a 23-year-old G5, P1 female with an intrauterine at 36 weeks and a day with a confirmed lower transverse section with a previous delivery. The patient does report a desire to attempt a vaginal after . We have reviewed thoroughly the risks and benefits of a repeat versus trial of labor. The patient has expressed understanding and desires to attempt a vaginal . At this time, the patient has been provided with a written consent form for her also to review once again to strengthen her informed consent and has been given instructions to have this discussion with her primary OB, Dr. Sampson, if she does not deliver before his return as he is out of town for the next week. The patient has bacterial vaginosis, which would explain the discharge that she is having. We also have GC chlamydia collected and sent for evaluation, which should be back in the next 2 to 3 days. The patient does report a history of chlamydia in the past. As the patient has a lower transverse uterine scar, desires attempt to labor prior to Dr. Sampson returning and has agreed to have this discussion with her primary OB to get his advice and school counselor when he returns. The patient's fetus has a reactive NST and reassuring category 1 tracing. The patient will be discharged to home with metronidazole 500 mg taken twice a day for the next week and will follow up with her primary OB as scheduled. Job ID: [id number]
[2018-04-27 19:00] LABS: Chlamydia by PCR Not Detected (NotDetected); GC by PCR Not Detected (NotDetected)
--- NOTE | 2018-04-28 19:57 | PDOC.EVN ---
Event Note - Event Note Event Note: Lab check post discharge: GC and Chl are negative
== END 2018-04-26 15:33 | disposition home health service (06) ==
LOC: L&D/OP 09:34
PROVIDERS: ATTEND Family Medicine
DX: O99.89 Other specified diseases and conditions complicating pregnancy, childbirth and the puerperium (principal); R10.9 Unspecified abdominal pain; O23.593 Infection of other part of genital tract in pregnancy, third trimester; B96.89 Other specified bacterial agents as the cause of diseases classified elsewhere; O99.013 Anemia complicating pregnancy, third trimester; D64.9 Anemia, unspecified; Z3A.36 36 weeks gestation of pregnancy; Z79.899 Other long term (current) drug therapy
CPT/HCPCS: 87480; 87491; 87510; 87591; 87660; 96372; 99285; J2270

== ENCOUNTER 2018-04-29 16:44 | Day surgery (SDC) | payer OTHER ==
[2018-04-29 17:06] VITALS: BMI 27.8
[2018-04-29] MEDS ORDERED: Lactated Ringer's 1,000 ML IV SCH ×2 (17:30)
[2018-04-29] MEDS ORDERED: Butorphanol Tartrate 1 MG/ML VIAL SLOW IVP PRN (17:31)
--- NOTE | 2018-04-29 17:34 | PDOC.LDHP ---
Labor and Delivery H&P Chief complaint: contractions HPI: 23 yo BF c/o UCs since walking 4 miles today. Seen at [address] today and was told she was 2 cm. Denies bleeding, SROM. Here earlier this week with similar complaints. Current gestational age (weeks): 36 Due date: 05/23/17 Dating criteria: first trimester ultrasound Grav: 5 Para: 1 OB History Details: PNC with Dr. Sampson. Current complications: none Abnormal US findings: No Past Medical History: polycystic kidney disease Current medications: pre-mode vitamins Previous surgical history: other (C/S at 32 weeks) Allergies/Adverse Reactions: Allergies Allergy/AdvReac Type Severity Reaction Status Date / Time No Known Allergies Allergy Verified 04/26/18 09:51 Social history: none - Physical Exam Vital signs reviewed and normal: yes General: resting Heart: RRR Lungs: CTAB Abdomen: gravid Extremeties: trace edema FHT: category 1 [place] contractions every: UCs q 4-5 mins - Vaginal Exam cm dilated: 2 Effacement: 25% Station: -2 - OB Labs Blood type: O RH: positive Antibody Screen: negative HIV: negative RPR: negative HEPSAg: negative 1 hour GCT: unknown GBS: unknown - Assessment L&D Assessment: labor (r/o labor) - Plan Plan: observation in L&D (IV fluid, Stadol Observe for cervical change)
--- NOTE | 2018-04-29 20:17 | PDOC.EVN ---
Event Note - Event Note Event Note: Given regular diet by Dr. Patrick. He has documented her scar as LST. SVE per labor RN shows no change. FHTs stable. Irregular mild UCs seen. Plan: DC home with precautions.
== END 2018-04-29 23:36 | disposition home or self-care (01) ==
LOC: L&D/OP 16:44
PROVIDERS: ATTEND Family Medicine
DX: O47.03 False labor before 37 completed weeks of gestation, third trimester (principal); O99.89 Other specified diseases and conditions complicating pregnancy, childbirth and the puerperium; Q61.3 Polycystic kidney, unspecified; Z3A.36 36 weeks gestation of pregnancy; Z79.899 Other long term (current) drug therapy
CPT/HCPCS: 96360; 96361; 99283

== ENCOUNTER 2018-05-04 11:10 | Inpatient (IN) | payer OTHER ==
[2018-05-04] MEDS ORDERED: Ondansetron PF 4 MG/2 ML Vial IVP PRN ×2 (12:17→17:02)
[2018-05-04] MEDS ORDERED: Bicitra 30 ML UDCUP PO SCH (12:30)
[2018-05-04] MEDS ORDERED: CEFAZOLIN 2 GM/50 ML BAG IVPB SCH (12:30)
[2018-05-04 12:39] VITALS: BMI 28.3
[2018-05-04] MEDS: Lactated Ringer's 1,000 ML IV SCH ×2 (12:39→13:02)
[2018-05-04 13:06] LABS: Mean Corpuscular HGB CONC 31.6 g/dL (32.0-36.0); Mean Corpuscular Hemoglobin 22.6 pg (27.0-31.0); Mean Corpuscular Volume 71.4 fL (78.0-98.0); Mean Platelet Volume 9.5 fL (7.4-10.4); Platelet Count 134 thou/uL (130-400); RBC Distribution Width 16.6 % (11.5-14.5); Red Blood Cell (RBC) Count 3.98 mill/uL (4.20-5.40); White Blood Cell (WBC) Count 7.6 thou/uL (4.8-10.8)
[2018-05-04 13:45] LABS: Syphilis Antibody Nonreactive (Nonreactive); Syphilis Antibody Index 0.05 S/CO (<1.00 Non-Reactive)
[2018-05-04] MEDS ORDERED: Morphine PF 1 MG/ML SYR ONE (13:46)
[2018-05-04] MEDS ORDERED: Succinylcholine Chloride 20 MG/ML 10 ml SYRINGE FS ONE (13:46)
[2018-05-04] MEDS ORDERED: HYDROmorphone 2 MG/ML VIAL SLOW IVP PRN (14:25)
[2018-05-04] MEDS ORDERED: Ondansetron HCl/PF 4 MG/2 ML Vial IVP PRN (14:25)
[2018-05-04] MEDS ORDERED: Meperidine HCl/PF 25 MG/ML VIAL SLOW IVP PRN (14:25)
[2018-05-04] MEDS ORDERED: Ketorolac Tromethamine 30 MG/ML VIAL IVP SCH (14:30)
[2018-05-04] MEDS ORDERED: ePHEDrine/0.9% NaCl/PF SYRINGE 50 mg/10 ml ONE (14:31)
[2018-05-04] MEDS ORDERED: Oxytocin 10 UNITS/ML VIAL ONE (14:31)
[2018-05-04] MEDS ORDERED: Ondansetron PF 4 MG/2 ML Vial ONE (14:35)
[2018-05-04] MEDS ORDERED: PHENYLEPHRINE-NS 100 MCG/ML 10 ML SYRINGE ONE (14:56)
[2018-05-04 15:01] LABS: HBSAg Index 0.21 S/CO (0-0.99); Hep B Surf Ag Non-Reactive S/CO (NonReactive)
[2018-05-04] MEDS ORDERED: Ketorolac Tromethamine 30 MG/ML VIAL ONE (16:39)
[2018-05-04] MEDS ORDERED: Milk Of Magnesia 30 ML UDCUP PO PRN (17:02)
[2018-05-04] MEDS ORDERED: NS / Oxytocin 40 units/1000ml 1,000 ML IV SCH (17:02)
[2018-05-04] MEDS ORDERED: diphenhydrAMINE 25 MG CAP PO PRN (17:02)
[2018-05-04] MEDS ORDERED: Promethazine HCl 25 MG/ML VIAL IM PRN (17:02)
[2018-05-04] MEDS ORDERED: Lanolin Ointment 7 GM TUBE TOP PRN (17:02)
[2018-05-04] MEDS ORDERED: Bisacodyl 10 MG SUPP PR PRN (17:02)
[2018-05-04] MEDS ORDERED: HYDROcodone/Acetaminophen 5/325 mg Tablet PO PRN ×2 (17:02)
[2018-05-04] MEDS: Ibuprofen 800 MG TAB PO SCH (18:41)
[2018-05-04] MEDS: Ferrous Sulfate 325 MG TAB PO SCH (18:41)
[2018-05-04] MEDS: Docusate Calcium (SURFAK) 240 MG CAP PO SCH (21:44)
[2018-05-05] MEDS ORDERED: Ketorolac Tromethamine 30 MG/ML VIAL IVP PRN (02:29)
[2018-05-05] MEDS ORDERED: Ondansetron PF 4 MG/2 ML Vial IVP PRN (02:29)
[2018-05-05] MEDS ORDERED: Naloxone HCl 0.4 mg/ml Vial IV PRN ×2 (02:29)
[2018-05-05] MEDS ORDERED: Promethazine HCl 25 MG SUPP PR PRN (02:29)
[2018-05-05] MEDS ORDERED: Hydrocerin (Eucerin) Cream 120 gm Jar TOP PRN (02:29)
[2018-05-05] MEDS ORDERED: Promethazine HCl 25 MG/ML VIAL IM PRN (02:29)
[2018-05-05] MEDS ORDERED: NO PO,IM,IV OR SC NARCOTICS FOR 12HR EXCEPT BY ANESTHESIA PO SCH (02:29)
[2018-05-05] MEDS ORDERED: diphenhydrAMINE 50 MG/ML VIAL IVP PRN (02:29)
[2018-05-05] MEDS: Ibuprofen 800 MG TAB PO SCH ×3 (03:11→23:24)
[2018-05-05 07:55] LABS: Hemoglobin 7.3 g/dL (12.0-16.0); Mean Corpuscular HGB CONC 31.8 g/dL (32.0-36.0); Mean Corpuscular Hemoglobin 23.1 pg (27.0-31.0); Mean Corpuscular Volume 72.4 fL (78.0-98.0); Mean Platelet Volume 9.3 fL (7.4-10.4); Platelet Count 110 thou/uL (130-400); RBC Distribution Width 16.7 % (11.5-14.5); Red Blood Cell (RBC) Count 3.16 mill/uL (4.20-5.40); White Blood Cell (WBC) Count 7.5 thou/uL (4.8-10.8)
[2018-05-05] MEDS: Docusate Calcium (SURFAK) 240 MG CAP PO SCH ×2 (08:38→21:42)
[2018-05-05] MEDS: Prenatal Vitamin 1 TAB PO SCH (08:38)
[2018-05-05] MEDS: Ferrous Sulfate 325 MG TAB PO SCH ×2 (08:38→18:38)
[2018-05-05] MEDS: Naloxone HCl 0.4 mg/ml Vial IV PRN ×2 (08:38→09:07)
[2018-05-05] MEDS ORDERED: HYDROcodone/Acetaminophen 5/325 mg Tablet PO PRN (12:58)
[2018-05-05] MEDS: HYDROcodone/Acetaminophen 5/325 mg Tablet PO PRN ×2 (13:05→17:56)
[2018-05-05] MEDS: Simethicone Chewable 80 MG TAB PO PRN (18:38)
--- NOTE | 2018-05-06 01:06 | PDOC.OPDEL ---
OB Operative/Delivery Note Delivery Dr/Surgeon: Adrián Assist: Matt Pre-Delivery Diagnosis: active labor, ruptured membrane, other (Prior C/S x1) Procedure/Post Delivery Dx: repeat low transverse CS Weeks gestation: 37 (37.2 wks) Anesthesia: spinal - Findings A Sex: male Weight: 3.281 kg - 1 min: 8 - 5 min: 9 - Additional Findings/Plan Placenta delivered: manual removal findings: low transverse hysterotomy without extension, normal uterus, normal tubes, normal ovaries Estimated blood loss: 800 mL Compilations/Other Findings: Date of Procedure: 05/04/2018 Resident Surgeon: Matt Attending Surgeon: Adrián Procedure: Repeat low transverse caesarean section Preoperative Diagnosis: 1)Term intrauterine 2)Previous 3)SROM in active labor Postoperative Diagnosis: 1)Same as above 2)rLTCS Anesthesia: Spinal Indications: The patient is a 23 year old female at 37.2 weeks gestation who presented with rupture of membranes and contractions. Patient with previous c/s x1 desiring repeat c/s. Procedure in Detail: After risks, benefits, and alternatives were explained to the patient, she gave informed consent. Pre-operative antibiotics included Cefazolin 2 gram IV. The patient was taken to the operating room and spinal anesthesia was initiated. She was placed in the supine position with a left tilt and prepped and draped in usual sterile fashion. A Pfannenstiel incision was made with a scalpel and carried down to the level of the fascia which was sharply nicked. The fascial cut was extended bilaterally with Marcus sissors. The inferior and superior edges of the cut fascial edges were elevated with Stew clamps. Adhesions were noted on anterior fundus of uterus and rectus muscles. A window was created using cauterization. Bladder blade was placed. Bladder flap was created with Metzenbaum scissors. A low transverse score was made with the scalpel and the uterus was entered in the midline with the scalpel. Clear fluid was seen. The hysterotomy was extended manually. The was noted to be vertex and was easily delivered by fundal pressure. Mouth and nares were bulb suctioned. Cord clamped and cut and grossly normal male infant was handed to waiting nurse. Cord blood was obtained. Placenta was manually extracted, found to be intact with 3 vessel cord and discarded. The uterus was externalized and the endometrium was curetted with a dry lap. The bladder blade was replaced and the uterus was closed with a running locking 0-Vicryl followed by several figure of eight stitches using 0-Vicryl. Following this hemostasis was noted. The abdomen was irrigated with saline and suctioned free of clots. The uterus was internalized and the hysterotomy was again noted to be hemostatic. The fascia was closed with a running non-locking 0-PDS. The subcutaneous tissue was irrigated and there were no bleeders. The subcutaneous tissue was brought together using 3-0 Vicryl. The skin was approximated with noris and a pressure dressing was placed. All counts were correct. The patient tolerated the procedure well and was taken to the recovery room in stable condition. Estimated Blood Loss: 800 mL Complications: None Specimens: Cord blood sent to lab for blood type Findings: Grossly normal male infant with apgars of 8 and 9. Grossly normal placenta with 3 vessel cord discarded. Drains: Ellison to gravity draining clear urine Post delivery plan: routine recovery
[2018-05-06] MEDS: Ibuprofen 800 MG TAB PO SCH ×3 (05:15→21:34)
[2018-05-06] MEDS ORDERED: Ibuprofen 800 MG TAB PO SCH (06:00)
[2018-05-06] MEDS: Ferrous Sulfate 325 MG TAB PO SCH ×2 (09:36→17:55)
[2018-05-06] MEDS: Prenatal Vitamin 1 TAB PO SCH (09:36)
[2018-05-06] MEDS: Simethicone Chewable 80 MG TAB PO PRN ×2 (09:36→21:33)
[2018-05-06] MEDS: Docusate Calcium (SURFAK) 240 MG CAP PO SCH ×2 (09:37→21:33)
[2018-05-06] MEDS: HYDROcodone/Acetaminophen 5/325 mg Tablet PO PRN ×2 (09:37→17:59)
[2018-05-07] MEDS: Ibuprofen 800 MG TAB PO SCH ×2 (05:22→13:44)
[2018-05-07] MEDS: HYDROcodone/Acetaminophen 5/325 mg Tablet PO PRN ×2 (05:22→12:23)
[2018-05-07] MEDS: Docusate Calcium (SURFAK) 240 MG CAP PO SCH (08:15)
[2018-05-07] MEDS: Prenatal Vitamin 1 TAB PO SCH (08:15)
[2018-05-07 08:16] VITALS: BP 115/65; TEMP 98.1
[2018-05-07] MEDS: Ferrous Sulfate 325 MG TAB PO SCH (08:16)
[2018-05-07] MEDS: Simethicone Chewable 80 MG TAB PO PRN (12:23)
== END 2018-05-07 16:04 | disposition home or self-care (01) | DRG 788 ==
LOC: L&D-LIB 11:10 → L&D 13:56 → 3SW 17:46
PROVIDERS: ADMIT Family Medicine; ATTEND Family Medicine
PROC: 10D00Z1 Extraction of Products of Conception, Low, Open Approach (ICD-10-PCS; principal; 2018-05-04)
DX: O34.211 Maternal care for low transverse scar from previous cesarean delivery (principal); Z3A.37 37 weeks gestation of pregnancy; Z37.0 Single live birth
CPT/HCPCS: 36415; 51702; 85027; 86780; 86850; 86900; 86901; 87340; J1885; J2274; J2310; J2405; J2590

== ENCOUNTER 2019-12-20 15:30 | Emergency (ER) | payer OTHER ==
[2019-12-20 16:12] LABS: #Lymphocytes 1.7 thou/uL (1.20-3.40); #Monocytes 0.3 thou/uL (0.11-0.59); #Neutrophils 1.8 thou/uL (1.40-6.50); %Eosinophils 0.9 % (0.0-10.0); %Lymphocytes 43.8 % (21.0-51.0); %Monocytes 7.8 % (0.0-10.0); %Neutrophils 47.4 % (42.0-75.0); Hemoglobin 9.5 g/dL (12.0-16.0); Mean Corpuscular Hemoglobin 23.3 pg (27.0-31.0); Mean Corpuscular Volume 75.2 fL (78.0-98.0); Mean Platelet Volume 8.6 fL (7.4-10.4); Platelet Count 218 thou/uL (130-400); RBC Distribution Width 14.7 % (11.5-14.5); Red Blood Cell (RBC) Count 4.07 mill/uL (4.20-5.40); White Blood Cell (WBC) Count 3.9 thou/uL (4.8-10.8)
[2019-12-20 16:33] LABS: ALT (SGPT) Less than 7 U/L (8-55); AST (SGOT) 15 U/L (5-34); Alkaline Phosphatase 89 U/L (40-110); Anion Gap 9 mmol/L (10-20); BUN (Urea Nitrogen) 6 mg/dL (7.0-18.7); Bilirubin, Total 0.3 mg/dL (0.2-1.2); Calc. Creatinine Clearance 0 mL/min (70-130); Calcium 8.7 mg/dL (7.8-10.44); Carbon Dioxide 24 mmol/L (22-29); Chloride 106 mmol/L (98-107); Estimated GFR-MDRD 83; Globulin 3.3 g/dL (2.4-3.5); Glucose 92 mg/dL (70-105); Potassium 3.5 mmol/L (3.5-5.1); Protein, Total 7.3 g/dL (6.0-8.3); Sodium 135 mmol/L (136-145)
[2019-12-20 17:44] LABS: Bilirubin Negative (Negative); Blood, Urine 3+ (Negative); Clarity Clear (Clear); Glucose, Urine (Dipstick) Normal (Negative); Ketone, Urine Negative (Negative); Leukocyte Negative Leu/uL (Negative); Nitrite Negative (Negative); Protein, Urine (Dipstick) Negative (Neg-Trace); RBC/HPF 21-50 HPF (0-3); Squamous Epithelial 0-3 HPF (0-3); Urobilinogen Normal mg/dL (Less than 2); WBC/HPF 0-3 HPF (0-3)
[2019-12-20 17:50] LABS: Bacteria/HPF 1+ HPF (None Seen)
[2019-12-20] MEDS ORDERED: Morphine 4 MG/ML VIAL ONE ×2 (17:50→18:27)
[2019-12-20] MEDS ORDERED: Ketorolac Tromethamine 30 MG/ML VIAL ONE ×2 (17:50→18:26)
--- NOTE | 2019-12-20 17:51 | MRI ---
MRI LUMBAR SPINE WITHOUT CONTRAST: 12/20/19 INDICATIONS: Caudal equina is given as reason for exam. Patient complains of right leg numbness x1 day. FINDINGS: Lumbar vertebrae maintain normal height and alignment. The disc spaces are normally maintained and ex hibit normal hydration. No evidence of disc bulge or disc protrusion seen at any of the visualized lumbar levels. T10-T11 and T11-T12 levels are also imaged and appear unremarkable. Conus is normally positioned. There is no ce ntral canal or foraminal stenosis identified. IMPRESSION: Unremarkable MRI of lumbar spine. POS: AGW
--- NOTE | 2019-12-20 18:48 | MRI ---
MRI THORACIC SPINE: 12/20/19 INDICATIONS: Cauda equina, weakness and back pain. FINDINGS: Thoracic vertebrae maintain normal height and alignment. Vertebral body signal is normal. There is no evidence of disc bulge or disc protrusion in any of the thoracic levels. There is no cord impingement. The thoracic cord appears normal. No central canal or foraminal stenosis identified. IMPRESSION: Unremarkable MRI of thoracic spine. POS: AGW
--- NOTE | 2019-12-20 19:18 | ULT ---
EXAM: Right lower extremity venous Doppler US HISTORY: Right lower extremity edema and pain FINDINGS: Grayscale, color-flow, Doppler evaluation, spectral analysis of the right lower extremity venous stru ctures is performed with 2-D imaging. The right common femoral, superficial femoral, popliteal, posterior tibial, proximal greater saphenous and profunda femoral veins are imaged. There is normal luminal compressibility, flow, and augmentation the visualized deep venous structures of the right lower extremity. IMPRESSION: No evidence of a deep vein thrombosis in the right lower extremity.
[2019-12-20] MEDS ORDERED: HYDROmorphone 0.5 MG/0.5 ML SYRINGE ONE (21:07)
--- NOTE | 2019-12-20 21:41 | CT ---
CT BRAIN WITHOUT CONTRAST: HISTORY: Altered mental status. Right leg weakness. FINDINGS: No evidence of acute infarct, hemorrhage, midline shift or abnormal extra-axial fluid collections is seen. The ventricular size is appropriate and the basilar cisterns are patent. The bony calvarium is intact. The visualized paranasal sinuses and mastoid air cells are well aerated. IMPRESSION: No CT evidence of acute intracranial process.
== END 2019-12-20 22:51 | disposition home or self-care (01) ==
LOC: ERS 15:30
DX: G62.9 Polyneuropathy, unspecified (principal); D50.9 Iron deficiency anemia, unspecified; F31.9 Bipolar disorder, unspecified; F17.210 Nicotine dependence, cigarettes, uncomplicated; Z79.899 Other long term (current) drug therapy
CPT/HCPCS: 70450; 72146; 72148; 80053; 81003; 81015; 84702; 85025; 85652; 86140; 86900; 86901; 96374; 96375; J1170; J1885; J2270

== ENCOUNTER 2023-03-29 09:23 | Emergency (ER) | payer BC, SELFPAY ==
[2023-03-29 10:05] LABS: #Monocytes 0.3 thou/uL (0.11-0.59); #Neutrophils 1.9 thou/uL (1.40-6.50); %Basophils 0.6 % (0.0-1.0); %Eosinophils 0.3 % (0.0-10.0); %Lymphocytes 32.8 % (21.0-51.0); %Neutrophils 57.3 % (42.0-75.0); Hematocrit 30.8 % (36.0-47.0); Hemoglobin 8.6 g/dL (12.0-16.0); Mean Corpuscular HGB CONC 27.9 g/dL (32.0-36.0); Mean Corpuscular Hemoglobin 19.6 pg (27.0-31.0); Mean Corpuscular Volume 70.3 fl (78.0-98.0); Mean Platelet Volume 9.9 fL (7.4-10.4); Platelet Count 167 10x3/uL (130-400); RBC Distribution Width 17.5 % (11.5-14.5); Red Blood Cell (RBC) Count 4.38 mill/uL (4.20-5.40); White Blood Cell (WBC) Count 3.2 10x3/uL (4.8-10.8)
[2023-03-29 10:29] LABS: ALT (SGPT) 9 U/L (8-55); AST (SGOT) 19 U/L (5-34); Albumin 4.5 g/dL (3.5-5.0); Alkaline Phosphatase 70 U/L (40-110); Anion Gap 10 mmol/L (10-20); BUN (Urea Nitrogen) 7 mg/dL (7.0-18.7); Bilirubin, Total 0.5 mg/dL (0.2-1.2); Calc. Creatinine Clearance 0 mL/min (70-130); Calcium 9.5 mg/dL (7.8-10.44); Carbon Dioxide 26 mmol/L (22-29); Chloride 105 mmol/L (98-107); Estimated GFR 96; Globulin 3.1 g/dL (2.4-3.5); Glucose 98 mg/dL (70-105); Potassium 3.5 mmol/L (3.5-5.1); Protein, Total 7.6 g/dL (6.0-8.3); Sodium 137 mmol/L (136-145)
[2023-03-29 10:38] LABS: CellaVision Operator ID LAB.NR; Hypochromia SLIGHT = 6-15 cells HPF (0-5); Platelet Adequacy Comment Platelets Normal; Polychromasia SLIGHT = 2-3 cells HPF (0-2)
[2023-03-29 10:44] LABS: Bilirubin Negative (Negative); Blood, Urine Negative (Negative); Clarity Clear (Clear); Glucose, Urine (Dipstick) Normal (Negative); Ketone, Urine Negative (Negative); Leukocyte Negative Leu/uL (Negative); Nitrite Negative (Negative); Protein, Urine (Dipstick) Negative (Neg-Trace); Specific Gravity, Urine 1.007 (1.002-1.036); Urobilinogen Normal mg/dL (Less than 2); pH, Urine 6.5 (5.0-9.0)
[2023-03-29 11:02] LABS: CAUTI Indications for Culture Pregnancy; RBC/HPF None Seen HPF (0-3); Squamous Epithelial 0-3 HPF (0-3); Urine Culture Reflex Yes Yes; WBC/HPF None Seen HPF (0-3)
== END 2023-03-29 12:18 | disposition home or self-care (01) ==
LOC: ERS 09:23
DX: O20.9 Hemorrhage in early pregnancy, unspecified (principal); O99.331 Smoking (tobacco) complicating pregnancy, first trimester; F17.210 Nicotine dependence, cigarettes, uncomplicated; Z3A.00 Weeks of gestation of pregnancy not specified
CPT/HCPCS: 36415; 76856; 80053; 81001; 84702; 85025; 87086